=== PATIENT | female | born 1985 | race Two or more races ===

== ENCOUNTER → 2017-02-27 | Outpatient (CLI) | payer BC | END | disposition home or self-care (01) | LOC: CFH 12:53 | PROVIDERS: ATTEND Obstetrics & Gynecology | DX: N63.21 Unspecified lump in the left breast, upper outer quadrant (principal); N63.24 Unspecified lump in the left breast, lower inner quadrant | CPT/HCPCS: 76641; G0204 ==

== ENCOUNTER → 2017-03-08 | Outpatient (CLI) | payer BC ==
[~2017-03-08] MED LIST: LIDOCAINE 1%, 20ML ONE; LIDOCAINE 1%-EPI 1:100K, 20ML ONE
== END | disposition home or self-care (01) ==
LOC: CFH 09:47
PROVIDERS: ATTEND Obstetrics & Gynecology
DX: N63.20 Unspecified lump in the left breast, unspecified quadrant (principal); R92.8 Other abnormal and inconclusive findings on diagnostic imaging of breast
CPT/HCPCS: 19083; 88305; J3490